=== PATIENT | female | born 1955 | race Caucasian/White ===

== ENCOUNTER → 2020-02-25 | Outpatient (CLI) | payer MEDICARE, OTHER ==
[~2020-02-25] MED LIST: ASPI81CH PO; Acyclovir200 MG PO; Armour Thyroid15 MG PO; DHEA 10 MG TAB1 EACH PO; Fish Oil300 MG PO
== END | disposition home or self-care (01) ==
LOC: LAB SHORT 09:04 → PLD 09:04
DX: D22.61 Melanocytic nevi of right upper limb, including shoulder (principal)
CPT/HCPCS: 88305

== ENCOUNTER 2021-01-29 07:16 | Day surgery (SDC) | payer MEDICARE, OTHER ==
[~2021-01-29] VITALS: Ht 162.6 cm; Wt 77.8 kg
[2021-01-29] MEDS ORDERED: MELO7.5 (07:32)
[2021-01-29] MEDS ORDERED: ATOR10 (07:32)
== END 2021-01-29 09:18 | disposition home or self-care (01) ==
LOC: ORSCSDS 07:16
PROVIDERS: Surgery
PROC: 0DJD8ZZ Inspection of Lower Intestinal Tract, Via Natural or Artificial Opening Endoscopic (ICD-10-PCS; principal; 2021-01-29 08:30)
DX: Z12.11 Encounter for screening for malignant neoplasm of colon (principal); Z80.0 Family history of malignant neoplasm of digestive organs; Z86.010 Personal history of colon polyps; K57.30 Diverticulosis of large intestine without perforation or abscess without bleeding; E03.9 Hypothyroidism, unspecified; Z79.899 Other long term (current) drug therapy
CPT/HCPCS: J2704; J7120